=== PATIENT | male | born 1965 | race Caucasian/White ===

== ENCOUNTER 2017-04-26 14:40 | Emergency (ER) | payer OTHER ==
[2017-04-26 15:06] VITALS: BP 149/88
--- NOTE | 2017-04-26 15:27 | UC ---
Truncal Trauma HPI - HPI Summary HPI Summary: rib injury to right ribs x 4 days ago . fell off the stairs , hit the right side of ribs to the chair + painful to touch, deep breathing , moving no sob , no cough - History Of Current Complaint Chief Complaint: UCGeneralIllness Stated Complaint: S/P FALL LEFT RIBS/BACK INJURY Time Seen by Provider: 04/26/17 15:01 Hx Obtained From: Patient Onset/Duration: Sudden Onset, Lasting Days - 4 Severity Initially: Severe Severity Currently: Moderate Mechanism Of Injury: Blunt Trauma Aggravating Factor(s): Movement, Deep Breathing, Cough Alleviating factor(s): Nothing Associated Signs And Symptoms: Negative: SOB, Chest Pain, Cough, Hematuria, Abdominal Pain, Fever, Nausea, Vomiting - Allergies/Home Medications Allergies/Adverse Reactions: Allergies Allergy/AdvReac Type Severity Reaction Status Date / Time Amoxicillin [From Augmentin] Allergy Nausea And Verified 04/26/17 14:54 Vomiting Clavulanic Acid Allergy Nausea And Verified 04/26/17 14:54 [From Augmentin] Vomiting Home Medications: Home Medications Acetaminophen [Acetaminophen Extra Stren] 1,000 mg PO Q4H PRN 04/26/17 [History Confirmed 04/26/17] Naproxen [Naproxen 500 mg] 500 mg PO BID PRN 04/26/17 [History Confirmed ] PMH/Surg Hx/FS Hx/Imm Hx - Additional Past Medical History Additional PMH: alcohol abuse - Surgical History Surgical History: None - Family History Known Family History: Negative: Diabetes - Social History Alcohol Use: Daily Alcohol Amount: 6 beer daily Substance Use Type: None Smoking Status (MU): Heavy Every Day Tobacco Smoker Type: Cigarettes Amount Used/How Often: 2 packs daily Review of Systems Constitutional: Chills, Fatigue Skin: Negative Eyes: Negative, Blurred Vision, Diplopia Cardiovascular: Negative Gastrointestinal: Negative Genitourinary: Negative Motor: Negative Neurovascular: Negative Musculoskeletal: Negative All Other Systems Reviewed And Are Negative: Yes Physical Exam Triage Information Reviewed: Yes Appearance: Well-Appearing, Well-Nourished, Pain Distress Vital Signs: Initial Vital Signs Temp 99.5 F 04/26/17 14:56 Pulse 76 04/26/17 14:56 Resp 16 04/26/17 14:56 BP 149/88 04/26/17 14:56 Pulse Ox 99 04/26/17 14:56 Vital Signs Reviewed: Yes Eyes: Positive: Conjunctiva Clear ENT: Positive: Normal ENT inspection, Hearing grossly normal, Pharynx normal Neck exam: Normal Neck: Positive: Supple, Nontender, No Lymphadenopathy Respiratory Exam: Normal Respiratory: Positive: Chest non-tender, Lungs clear, Normal breath sounds, No respiratory distress, Other: - tenderness left anteriror ribs Cardiovascular Exam: Normal Cardiovascular: Positive: RRR, No Murmur, Pulses Normal, Brisk Capillary Refill Abdominal Exam: Normal Abdomen Description: Positive: Soft, CVA Tenderness (R), CVA Tenderness (L) Bowel Sounds: Positive: Present Psychological: Positive: Normal Response To Family Truncal Trauma Course/Dx - Differential Dx/Diagnosis Provider Diagnoses: contusion left ribs. constipation Discharge - Discharge Plan Condition: Stable Disposition: HOME Prescriptions: Tramadol HCl [Ultram] 50 mg PO Q6H PRN #20 tab MDD 4 tabs PRN Reason: Pain Patient Education Materials: Constipation (ED), Rib Contusion (ED) Additional Instructions: rib injury / ? fracture
== END 2017-04-26 15:27 | disposition home or self-care (01) ==
LOC: UCCORT 14:40
DX: S20.219A Contusion of unspecified front wall of thorax, initial encounter (principal); Z88.3 Allergy status to other anti-infective agents; W10.9XXA Fall (on) (from) unspecified stairs and steps, initial encounter; K59.00 Constipation, unspecified; F17.210 Nicotine dependence, cigarettes, uncomplicated
CPT/HCPCS: 99202; G0463

== ENCOUNTER 2017-10-18 14:57 | Emergency (ER) | payer OTHER ==
[2017-10-18 15:33] VITALS: BP 157/97
--- NOTE | 2017-10-18 16:33 | ED ---
Back Pain - HPI Summary HPI Summary: 52 yr old male with the complaint of pain in the upper medial right back since falling a week ago against a counter. He was walking and slipped in his socks on the floor. He has had pain that has been unrelenting in the area medial to the right scapula and to the t spine area. Pain worse with movement. Denies SOB. No other complaint. Pain 02/28. - History of Current Complaint Chief Complaint: UCUpperExtremity Stated Complaint: RT SHOULDER/UPPER BACK PAIN *1 1/2 WEEK Time Seen by Provider: 10/18/17 16:03 Pain Intensity: 8 - Allergies/Home Medications Allergies/Adverse Reactions: Allergies Allergy/AdvReac Type Severity Reaction Status Date / Time amoxicillin [From Augmentin] Allergy Unknown Verified 10/18/17 15:33 Reaction Details clavulanic acid Allergy Unknown Verified 10/18/17 15:33 [From Augmentin] Reaction Details Home Medications: Home Medications Ibuprofen 800 mg PO 10/18/17 [History] PMH/Surg Hx/FS Hx/Imm Hx Infectious Disease History: No Infectious Disease History: Denies: Traveled Outside the [place] in Last 30 Days - Family History Known Family History: Negative: Diabetes - Social History Alcohol Use: Daily Alcohol Amount: 6 beer daily Substance Use Type: Reports: None Smoking Status (MU): Heavy Every Day Tobacco Smoker Type: Cigarettes Amount Used/How Often: 2 packs daily Review of Systems Constitutional: Negative Positive: Other - back pain All Other Systems Reviewed And Are Negative: Yes Physical Exam Triage Information Reviewed: Yes Vital Signs On Initial Exam: Initial Vitals Temp Pulse Resp BP Pulse Ox 98.2 F 89 18 157/97 99 10/18/17 15:29 10/18/17 15:29 10/18/17 15:29 10/18/17 15:29 10/18/17 15:29 Vital Signs Reviewed: Yes Appearance: Positive: Well-Appearing, No Pain Distress Skin: Positive: Warm, Skin Color Reflects Adequate Perfusion Head/Face: Positive: Normal Head/Face Inspection Eyes: Positive: EOMI ENT: Positive: Normal ENT inspection, Pharynx normal, TMs normal Neck: Positive: Supple, Nontender Respiratory/Lung Sounds: Positive: Clear to Auscultation, Breath Sounds Present Cardiovascular: Positive: RRR. Negative: Murmur Abdomen Description: Positive: Nontender Musculoskeletal: Positive: Strength/ROM Intact, Other - patient tender to the area medial to the right scapula, and toward the t spine in this area. There is mild STS. Neurological: Positive: Sensory/Motor Intact, Alert, Oriented to Person Place, Time, CN Intact II-III Psychiatric: Positive: Normal - Dorys Coma Scale Best Eye Response: 4 - Spontaneous Best Motor Response: 6 - Obeys Commands Best Verbal Response: 5 - Oriented Coma Scale Total: 15 Diagnostics - Vital Signs Vital Signs Temp Pulse Resp BP Pulse Ox 10/18/17 15:29 98.2 F 89 18 157/97 99 - Laboratory Lab Statement: Any lab studies that have been ordered have been reviewed, and results considered in the medical decision making process. - Radiology tspine, chest xray Xray Interpretation: No Acute Changes Radiology Interpretation Completed By: Radiologist Back Pain Course/Dx - Course Course Of Treatment: 52 yr old with contusion to the upper right back, muscle strain. Rx flexeril. FU with Ortho. - Diagnoses Provider Diagnoses: Contusion, Muscle strain, Hypertension Discharge - Discharge Plan Condition: Good Disposition: HOME Prescriptions: Cyclobenzaprine TAB* [Flexeril 10 MG TAB*] 10 mg PO TID PRN #14 tab PRN Reason: Spasms Ibuprofen TAB* [Motrin TAB* 800 MG] 800 mg PO TID #14 tab Patient Education Materials: Contusion in Adults (ED), Musculoskeletal Pain (ED ), Muscle Strain (ED) Forms: *Work Release Referrals: John Jiang [Primary Care Provider] -
[2017-10-18] MEDS ORDERED: Acetaminophen TAB* 325 MG PO ONE (16:47)
[2017-10-18] MEDS ORDERED: Ibuprofen TAB* 400 MG PO ONE (16:47)
--- NOTE | 2017-10-18 17:15 | RAD ---
INDICATION: Burning pain at the RIGHT posterior upper thoracic spine region following a fall about one week ago. COMPARISON: No relevant prior exams available on the [facility] PACS for comparison. TECHNIQUE: Dual energy PA and routine lateral views of the chest were obtained. AP and lateral views of the thoracic spine. REPORT: Elevated lung volumes. Clear lungs and pleural spaces. Negative for pneumothorax. The heart, pulmonary vasculature, and mediastinal contours are unremarkable. No rib or thoracic spine fracture evident. Normal thoracic kyphosis. Mild RIGHT convex curve at the lower thoracic and visualized proximal lumbar spine. Multilevel mild to moderate thoracic degenerative spondylosis. Unremarkable paraspinal soft tissue contours. IMPRESSION: 1. No radiographic evidence for thoracic spine fracture. 2. No evidence for acute intrathoracic disease. 3. Elevated lung volumes suggest potential obstructive lung disease.
--- NOTE | 2017-10-18 17:15 | RAD ---
INDICATION: Burning pain at the RIGHT posterior upper thoracic spine region following a fall about one week ago. COMPARISON: No relevant prior exams available on the [facility] PACS for comparison. TECHNIQUE: Dual energy PA and routine lateral views of the chest were obtained. AP and lateral views of the thoracic spine. REPORT: Elevated lung volumes. Clear lungs and pleural spaces. Negative for pneumothorax. The heart, pulmonary vasculature, and mediastinal contours are unremarkable. No rib or thoracic spine fracture evident. Normal thoracic kyphosis. Mild RIGHT convex curve at the lower thoracic and visualized proximal lumbar spine. Multilevel mild to moderate thoracic degenerative spondylosis. Unremarkable paraspinal soft tissue contours. IMPRESSION: 1. No radiographic evidence for thoracic spine fracture. 2. No evidence for acute intrathoracic disease. 3. Elevated lung volumes suggest potential obstructive lung disease.
== END 2017-10-18 17:32 | disposition home or self-care (01) ==
LOC: UCCORT 14:57
DX: S20.221A Contusion of right back wall of thorax, initial encounter (principal); W01.198A Fall on same level from slipping, tripping and stumbling with subsequent striking against other object, initial encounter; I10 Essential (primary) hypertension; F17.210 Nicotine dependence, cigarettes, uncomplicated; Y92.9 Unspecified place or not applicable
CPT/HCPCS: 71046; 72070; 99212; A9270-GY; G0463